=== PATIENT | female | born 1995 | race African-American/Black ===

== ENCOUNTER 2017-04-20 21:16 | Emergency (ER) | payer SELFPAY ==
[~2017-04-20] VITALS: Ht 154.9 cm; Wt 88.9 kg
[2017-04-20 21:47] LABS: BILIRUBIN,URINE NEGATIVE (NEG); GLUCOSE,URINE NEGATIVE (NEG); NITRITE,URINE NEGATIVE (NEG); PROTEIN,URINE NEGATIVE (NEG-TRACE)
[2017-04-20 21:52] LABS: BACTERIA,URINE FEW /HPF (0-FEW); RBC,URINE 0 /HPF (0-2); SQUAMOUS EPITHELIAL CELL,UR MOD /LPF
[2017-04-20] MEDS ORDERED: ONDA4TAB10 PO (22:33)
[2017-04-20] MEDS ORDERED: HYDR-971 PO (22:33)
--- NOTE | 2017-04-20 22:33 | PHYS DOC ---
Past Medical History Past Medical History: No Pertinent History Past Surgical History: No Surgical History Alcohol Use: Rarely Drug Use: None Adult General Chief Complaint Chief Complaint: PELVIC PAIN HPI HPI Patient is a 21 year old female presenting to the emergency department for evaluation of lower abdominal pain that has been off and on issue for at least 3 -4 months possibly longer associated with heavy periods and irregular periods. She says that the abdominal pain is across her entire lower abdomen crampy intermittent and associated with nausea but no fevers chills vomiting dysuria hematuria vaginal discharge diarrhea or constipation. She denies any prior abdominal surgeries. 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 She says that her last period was approximately 1-1/2 weeks ago and then she started having the lower crampy abdominal pain with vaginal bleeding again this morning. She says the bleeding is not heavy but it is irregular for her. She has not tried taking anything for pain. She is in no obvious distress with normal vital signs. Review of Systems Review of Systems Constitutional: Denies fever or chills [] GI: + abdominal pain, nausea. No vomiting, bloody stools or diarrhea [] : Denies dysuria or hematuria [] Musculoskeletal: Denies back pain or joint pain [] Allergies Allergies Allergies Coded Allergies Type Severity Reaction Last Updated Verified No Known Drug Allergies 04/20/17 No Physical Exam Physical Exam Constitutional: Well developed, well nourished, no acute distress, non-toxic appearance. [] Cardiovascular:Heart rate regular rhythm, no murmur [] Lungs & Thorax: Bilateral breath sounds clear to auscultation [] Abdomen: Bowel sounds normal, soft, no tenderness, no masses, no pulsatile masses. [] Back: No tenderness, no CVA tenderness. [] Current Patient Data Vital Signs Vital Signs Date Time Temp Pulse Resp B/P (MAP) Pulse Ox O2 Delivery O2 Flow Rate FiO2 04/20/17 21:48 98.3 89 16 100 Room Air 98.3 Lab Values Laboratory Tests Test 04/20/17 21:30 04/20/17 21:38 Urine Collection Type Unknown Urine Color Yellow Urine Clarity Clear Urine pH 6.0 Urine Specific Tok >=1.030 Urine Protein Negative mg/dL (NEG-TRACE) Urine Glucose (UA) Negative mg/dL (NEG) Urine Ketones (Stick) Negative mg/dL (NEG) Urine Blood Moderate (NEG) Urine Nitrite Negative (NEG) Urine Bilirubin Negative (NEG) Urine Urobilinogen Dipstick 1.0 mg/dL (0.2 mg/dL) Urine Leukocyte Esterase Negative (NEG) Urine RBC 0 /HPF (0-2) Urine WBC 1-4 /HPF (0-4) Urine Squamous Epithelial Cells Mod /LPF Urine Bacteria Few /HPF (0-FEW) Urine Mucus Mod /LPF POC Urine HCG, Qualitative Hcg negative (Negative) EKG EKG [] Radiology/Procedures Radiology/Procedures [] Course & Med Decision Making Course & Med Decision Making Patient with lower abdominal cramping and vaginal bleeding that she has no pain on abdominal exam tonight. She looks well with normal vital signs and is in no obvious distress and I offered her something for pain but she did not want anything. She likely has dysfunctional uterine bleeding and she can be safely treated as an outpatient with NSAIDs [place] and Zofran for breakthrough symptoms and [employer] follow-up. Patient aware and agreeable with plan and verbalized understanding of the need for short-term follow-up and strict ED return precautions discussed worsening pain fevers vomiting or other general concerns. Dragon Disclaimer Dragon Disclaimer This electronic medical record was generated, in whole or in part, using a voice recognition dictation system. Departure Departure Impression: Primary Impression: Abdominal pain Additional Impression: Vaginal bleeding Disposition: 01 HOME, SELF-CARE Condition: STABLE Referrals: NORMA THOMAS Jr, MD Patient Instructions: Uterine Bleeding, Dysfunctional Additional Instructions: TAKE 400MG OF IBUPROFEN EVERY 6 HOURS AND THE NORCO FOR BREAKTHROUGH PAIN. FOLLOW WITH THE [employer] SOON POSSIBLE. Scripts Ondansetron (ZOFRAN ODT) 4 Mg Tab.rapdis 4 MG PO BID Y for NAUSEA/VOMITING, #10 TAB Prov: CARLO BOURNE DO 04/20/17 Hydrocodone/Apap 5-325 (NORCO 5-325 TABLET) 1 Each Tablet 1 TAB PO PRN Q6HRS Y for PAIN, #10 TAB 0 Refills Prov: CARLO BOURNE DO 04/20/17 Problem Qualifiers Primary Impression: Abdominal pain Abdominal location: lower abdomen, unspecified Qualified Codes: R10.30 - Lower abdominal pain, unspecified CARLO BOURNE DO Apr 20, 2017 22:33
[2017-04-20] MEDS ORDERED: ONDANSETRON ODT 4 MG TAB.RAPDIS. PO ONE (22:45)
[2017-04-20 22:48] VITALS: BP 115/64
== END 2017-04-20 22:48 | disposition home or self-care (01) ==
LOC: ER 21:16
DX: R10.30 Lower abdominal pain, unspecified (principal); N93.9 Abnormal uterine and vaginal bleeding, unspecified; R11.0 Nausea
CPT/HCPCS: 81001; 81025; 99283; Q0162